=== PATIENT | male | born 1995 | race Caucasian/White ===

== ENCOUNTER 2018-05-17 12:20 | Day surgery (SDC) | payer OTHER ==
[2018-05-17] MEDS ORDERED: LIDOCAINE 2% INJ 100 MG/5 ML SDV (FOR ANES.) As Ordered (13:53)
[2018-05-17] MEDS ORDERED: PROPOFOL 200 MG/20 ML VIAL As Ordered ×2 (13:53→14:21)
== END 2018-05-17 15:01 | disposition home or self-care (01) ==
LOC: M OPP 12:20
DX: K62.5 Hemorrhage of anus and rectum (principal); R19.7 Diarrhea, unspecified; K51.011 Ulcerative (chronic) pancolitis with rectal bleeding; K58.0 Irritable bowel syndrome with diarrhea
CPT/HCPCS: 45380